=== PATIENT | male | born 1970 | race Hispanic/Latino ===

== ENCOUNTER 2018-06-02 12:18 | Emergency (ER) | payer OTHER ==
--- NOTE | 2018-06-02 13:38 | Emergency Department Report ---
ED N/V/D HPI - General Chief complaint: Nausea/Vomiting/Diarrhea Stated complaint: EXCESSIVE VOMITING Time Seen by Provider: 06/02/18 12:52 Source: patient, family Mode of arrival: Ambulatory Limitations: No Limitations - History of Present Illness Initial comments: This is a 47-year-old male here report that he has trouble swallowing 1 month. Patient was diagnosed at [facility] per patient a month ago with GERD and placed on Protonix. Patient stated the medication is not helping. Patient states he vomited 4 times last night. Patient said he is having abdominal pain from vomiting and retching. He says he cannot keep his mental health drugs none. Patient has a history of bipolar and anxiety. He said they did chest x- ray and labs at [facility] and they found that he has GERD. Denies any fever or chills. Denies any blood in his stool or vomiting blood. Denies any diarrhea. Abdominal pain is 6 out of 10 with vomiting and achy . Exacerbated with vomiting and alleviating after vomit. Denies any urinary burning, frequency or urgency. Denies any chest pain, cough or shortness of breath. Denied is a burning sensation in his chest. Denies any back pain. MD complaint: nausea, vomiting, abdominal pain -: During the night Description of Vomiting: food contents Associated Abdominal Pain: Yes Location: diffuse Radiation: none Severity: moderate Pain Scale: 6 Quality: aching Consistency: intermittent Improves with: other (after vomiting) Worsens with: vomiting Context: other (unknown and thinks is because of his acid reflux) Associated Symptoms: loss of appetite, nausea/vomiting, other (denies any alcohol use.). denies: myalgias, chest pain, cough, diaphoresis, fever/chills, headaches, malaise, rash, dysuria, shortness of breath, syncope, weakness - Related Data Previous Rx's Medication Instructions Recorded Last Taken Type Dicyclomine [Bentyl] 40 mg PO Q8H 3 Days #9 tablet 06/02/18 Unknown Rx Omeprazole 40 mg PO QAM 30 Days #30 capsule. 06/02/18 Unknown Rx Promethazine [Phenergan TAB] 25 mg PO Q6HR PRN #24 tab 06/02/18 Unknown Rx Allergies Allergy/AdvReac Type Severity Reaction Status Date / Time iodine Allergy Swelling Verified 06/02/18 13:44 peanut Allergy Swelling Verified 06/02/18 13:44 ED Review of Systems ROS: Stated complaint: EXCESSIVE VOMITING Other details as noted in HPI Constitutional: denies: chills, fever Eyes: denies: eye pain, eye discharge, vision change ENT: denies: ear pain, throat pain, congestion Respiratory: denies: cough, shortness of breath, SOB with exertion, SOB at rest , stridor, wheezing Cardiovascular: denies: chest pain, palpitations, dyspnea on exertion, edema, syncope Gastrointestinal: abdominal pain, nausea, vomiting. denies: diarrhea, constipation, hematemesis, melena, hematochezia Genitourinary: denies: urgency, dysuria Musculoskeletal: denies: back pain, joint swelling, arthralgia, myalgia Skin: denies: rash, lesions Neurological: denies: headache, weakness, numbness, paresthesias, confusion, abnormal gait, vertigo ED Past Medical Hx - Past Medical History Previous Medical History?: Yes Additional medical history: Bi polar/anxiety - Surgical History Past Surgical History?: No - Family History Family history: no significant - Social History Smoking Status: Never Smoker Substance Use Type: None - Medications Home Medications: Home Medications Medication Instructions Recorded Confirmed Last Taken Type Dicyclomine [Bentyl] 40 mg PO Q8H 3 Days #9 tablet 06/02/18 Unknown Rx Omeprazole 40 mg PO QAM 30 Days #30 capsule.dr 06/02/18 Unknown Rx Promethazine [Phenergan TAB] 25 mg PO Q6HR PRN #24 tab 06/02/18 Unknown Rx ED Physical Exam - General Limitations: No Limitations General appearance: alert, in no apparent distress - Head Head exam: Present: atraumatic, normocephalic, normal inspection - Eye Eye exam: Present: normal appearance, PERRL, EOMI Pupils: Present: normal accommodation - ENT ENT exam: Present: normal orophraynx, mucous membranes dry, TM's normal bilaterally, normal external ear exam - Neck Neck exam: Present: normal inspection, full ROM, other (no C-spine tenderness). Absent: tenderness, meningismus, lymphadenopathy - Respiratory Respiratory exam: Present: normal lung sounds bilaterally. Absent: respiratory distress, chest wall tenderness - Cardiovascular Cardiovascular Exam: Present: regular rate, normal rhythm, normal heart sounds. Absent: systolic murmur, diastolic murmur - GI/Abdominal GI/Abdominal exam: Present: soft, normal bowel sounds. Absent: distended, tenderness, guarding, rebound, rigid, organomegaly, mass, bruit, pulsatile mass , hernia - Extremities Exam Extremities exam: Present: normal inspection, full ROM, normal capillary refill , other (no clubbing, cyanosis or edema. +2 pulses to all extremities and no neurovascular compromise). Absent: tenderness, pedal edema, joint swelling, calf tenderness - Back Exam Back exam: Present: normal inspection, full ROM, other (ambulates without any difficulties). Absent: tenderness, CVA tenderness (R), CVA tenderness (L), muscle spasm, paraspinal tenderness, vertebral tenderness, rash noted - Neurological Exam Neurological exam: Present: alert, oriented X3, normal gait, reflexes normal. Absent: motor sensory deficit - Psychiatric Psychiatric exam: Present: normal affect, normal mood - Skin Skin exam: Present: warm, dry, intact, normal color. Absent: rash ED Course Vital Signs 06/02/18 06/02/18 12:27 19:36 Temperature 98.0 F Pulse Rate 77 Respiratory 16 20 Rate Blood Pressure 149/93 O2 Sat by Pulse 98 Oximetry - Reevaluation(s) Reevaluation #1: 06/02/18 13:52 Patient received Zofran 8 mg IV for nausea, Bentyl 40 mg elixir by mouth, lidocaine 15 mL and Maalox 15 mL by mouth for abdominal discomfort. Blood glucose is 79 and patient started on normal saline and will give D5 half-normal saline after first liters normal saline.. I will reevaluate. Patient awaiting labs and x-ray of the abdomen. 06/02/18 15:26 Reevaluation #2: 06/02/18 15:27 Patient is stable and abdominal exam is normal. He said his pain is better since up until, Maalox and lidocaine. Still awaiting urinalysis. Nausea is better with Zofran. Reevaluation #3: 06/02/18 18:56 Patient with some dry heaving and therefore Protonix 40 mg IV given and Reglan 10 mg IV. I will reevaluate. He drives heaves and brings up sputum no vomitus noted. Abdominal exam is normal Reevaluation #4: 06/02/18 20:50 Patient is able to tolerate liquids. No further vomiting after Protonix and Reglan. He received 2 L of IV fluid. Abdominal exam nontender to palpate in all quadrants ED Medical Decision Making - Lab Data Result diagrams: 06/02/18 14:42 06/02/18 14:42 Lab Results 06/02/18 06/02/18 06/02/18 Range/Units 13:47 14:42 14:42 WBC 7.6 (4.5-11.0) K/mm3 RBC 5.35 H (3.65-5.03) M/mm3 Hgb 15.3 H (11.8-15.2) gm/dl Hct 46.7 H (35.5-45.6) % MCV 87 (84-94) fl MCH 29 (28-32) pg MCHC 33 (32-34) % RDW 14.2 (13.2-15.2) % Plt Count 264 (140-440) K/mm3 Lymph % (Auto) 16.9 (13.4-35.0) % [place] % (Auto) 8.0 H (0.0-7.3) % Eos % (Auto) 7.1 H (0.0-4.3) % Baso % (Auto) 0.7 (0.0-1.8) % Lymph # 1.3 (1.2-5.4) K/mm3 [place] # 0.6 (0.0-0.8) K/mm3 Eos # 0.5 H (0.0-0.4) K/mm3 Baso # 0.1 (0.0-0.1) K/mm3 Seg Neutrophils % 67.3 (40.0-70.0) % Seg Neutrophils # 5.1 (1.8-7.7) K/mm3 Sodium 142 (137-145) mmol/L Potassium 4.0 (3.6-5.0) mmol/L Chloride 102.2 (98-107) mmol/L Carbon Dioxide 26 (22-30) mmol/L Anion Gap 18 mmol/L BUN 15 (9-20) mg/dL Creatinine 0.8 (0.8-1.5) mg/dL Estimated GFR > 60 ml/min BUN/Creatinine Ratio 19 % Glucose 94 (75-100) mg/dL POC Glucose 79 (70-105) Calcium 11.0 H (8.4-10.2) mg/dL Total Bilirubin 0.70 (0.1-1.2) mg/dL AST 36 (5-40) units/L ALT 34 (7-56) units/L Alkaline Phosphatase 108 (35-129) units/L Total Protein 8.2 (6.3-8.2) g/dL Albumin 4.6 (3.9-5) g/dL Albumin/Globulin Ratio 1.3 % Lipase 33 (13-60) units/L Urine Color (Yellow) Urine Turbidity (Clear) Urine pH (5.0-7.0) Ur Specific [place] (1.003-1.030) Urine Protein (Negative) mg/dL Urine Glucose (UA) (Negative) mg/dL Urine Ketones (Negative) mg/dL Urine Blood (Negative) Urine Nitrite (Negative) Urine Bilirubin (Negative) Urine Urobilinogen (<2.0) mg/dL Ur Leukocyte Esterase (Negative) Urine WBC (Auto) (0.0-6.0) /HPF Urine RBC (Auto) (0.0-6.0) /HPF Urine Mucus /HPF Plasma/Serum Alcohol (0-0.07) % 06/02/18 06/02/18 Range/Units 14:42 Unknown WBC (4.5-11.0) K/mm3 RBC (3.65-5.03) M/mm3 Hgb (11.8-15.2) gm/dl Hct (35.5-45.6) % MCV (84-94) fl MCH (28-32) pg MCHC (32-34) % RDW (13.2-15.2) % Plt Count (140-440) K/mm3 Lymph % (Auto) (13.4-35.0) % [place] % (Auto) (0.0-7.3) % Eos % (Auto) (0.0-4.3) % Baso % (Auto) (0.0-1.8) % Lymph # (1.2-5.4) K/mm3 [place] # (0.0-0.8) K/mm3 Eos # (0.0-0.4) K/mm3 Baso # (0.0-0.1) K/mm3 Seg Neutrophils % (40.0-70.0) % Seg Neutrophils # (1.8-7.7) K/mm3 Sodium (137-145) mmol/L Potassium (3.6-5.0) mmol/L Chloride (98-107) mmol/L Carbon Dioxide (22-30) mmol/L Anion Gap mmol/L BUN (9-20) mg/dL Creatinine (0.8-1.5) mg/dL Estimated GFR ml/min BUN/Creatinine Ratio % Glucose (75-100) mg/dL POC Glucose (70-105) Calcium (8.4-10.2) mg/dL Total Bilirubin (0.1-1.2) mg/dL AST (5-40) units/L ALT (7-56) units/L Alkaline Phosphatase (35-129) units/L Total Protein (6.3-8.2) g/dL Albumin (3.9-5) g/dL Albumin/Globulin Ratio % Lipase (13-60) units/L Urine Color [place] (Yellow) Urine Turbidity Clear (Clear) Urine pH 5.0 (5.0-7.0) Ur Specific [place] 1.026 (1.003-1.030) Urine Protein 100 mg/dl (Negative) mg/dL Urine Glucose (UA) Neg (Negative) mg/dL Urine Ketones 20 (Negative) mg/dL Urine Blood Neg (Negative) Urine Nitrite Neg (Negative) Urine Bilirubin Neg (Negative) Urine Urobilinogen 4.0 (<2.0) mg/dL Ur Leukocyte Esterase Neg (Negative) Urine WBC (Auto) 2.0 (0.0-6.0) /HPF Urine RBC (Auto) 6.0 (0.0-6.0) /HPF Urine Mucus 3+ /HPF Plasma/Serum Alcohol < 0.01 (0-0.07) % - Radiology Data Radiology results: report reviewed Abdominal 2 view x-ray dictated by radiologist and report reviewed by myself. Unremarkable abdomen. See full report below Patient: TIESHA GONCALVES MR#: [id number] : 1970 Acct:[id number] Age/Sex: 47 / M ADM Date: 06/02/18 Loc: ED Attending Dr: Ordering Physician: FREDDIE MUIR Date of Service: 06/02/18 Procedure(s): XR abdomen 2V Accession Number(s): [id number] cc: FREDDIE MUIR Fluoro Time In Minutes: ABDOMEN, 2 views: History: Abdominal pain with nausea and vomiting. There is no evidence of free air beneath the diaphragms. The gas pattern within the abdomen is unremarkable. There is no evidence of bowel dilatation, significant air-fluid levels, or pathologic calcifications. Organ shadows are unremarkable. IMPRESSION: Unremarkable abdomen. Transcribed By: TTR Dictated By: CRISTINA MARTINEZ JR, MD Electronically Authenticated By: CRISTINA MARTINEZ JR, MD Signed Date/Time: 06/02/181410 DD/ 09 TD/TT: 06/02/181410 - Medical Decision Making This is a 47-year-old male here reporting that he is having nausea and vomiting with abdominal pain that started last night. He's had similar incident in the past specifically one month ago where he went to [facility] and they did lab work and x-rays and showed he had GERD. He said they placed him on Protonix which is not helping. Patient is here to be evaluated. Patient was examined by myself and abdominal exam, back exam is normal. He is in no distress. Patient noted to be right maradiaga a couple times in the emergency room. He has a blood sugar was at 79 initially he was given 1 L of normal saline followed by D5 half normal saline. Patient tolerating oral liquids in the emergency room. Patient was given Zofran 8 mg IV, Bentyl 40 mg by mouth, lidocaine 15 mL and Maalox 15 mL by mouth which relieved his abdominal. Patient later was given Reglan 10 mg IV and Protonix 40 mg IV and now he is feeling better without any nausea or vomiting episode. CBC and CMP is stable with blood glucose on chemistry at 94. Urinalysis stable except he has protein and ketones in his urine. Lipase is normal value. Suspect rehydration well fix this. Patient had abdominal x-ray two-view that was dictated by radiologist report reviewed by myself and found to have normal exam without any signs of obstruction or constipation. Patient educated on x-ray, lab results and he voiced understanding. Assessment and plan Nausea and vomiting-had her with IV fluid, Reglan, Zofran and Protonix and will send home on omeprazole. Diet diet Abdominal pain-resolved with Benadryl, Maalox and lidocaine Mild dehydration-better with IV fluid and he's taken by mouth liquids. Patient educated on medication, diagnoses, x-ray, lab results and Giovana diet and he voiced understanding. Patient discharged home a prescription for Phenergan, on the omeprazole, Bentyl . Patient referred to advisory intern and primary care. I discussed the patient that he needs to follow-up at [facility] and advisory intern in 3 days and if symptoms return before CN primary care advisory intern he needs to return to the emergency room JO. I also checked it him to eat diet such as bananas, rice, applesauce and toast and to refrain from drinking caffeine or carbonated beverage and he agrees. Discharge home from ED in stable condition, vital signs are stable is a febrile and nausea and abdominal pain has resolved. - Differential Diagnosis SBO, pancreatitis, liver disease, UTI, enteritis, acute nausea and vomiting Critical care attestation.: If time is entered above; I have spent that time in minutes in the direct care of this critically ill patient, excluding procedure time. ED Disposition Clinical Impression: Dehydration Nausea & vomiting Qualifiers: Vomiting type: unspecified Vomiting Intractability: non-intractable Qualified Code(s): R11.2 - Nausea with vomiting, unspecified Abdominal pain Qualifiers: Abdominal location: periumbilical Qualified Code(s): R10.33 - Periumbilical pain Disposition: - TO HOME OR SELFCARE Is pt being admited?: No Does the pt Need Aspirin: No Condition: Stable Instructions: Acute Nausea and Vomiting (ED), Abdominal Pain (ED), Dehydration (ED) Additional Instructions: Please follow up with [facility] for primary care in 3 days Follow-up at [place] [facility] for evaluation of nausea and vomiting that 's been ongoing for over a month. Call to schedule an appointment and follow- up in 3-4 days Current emergency room, if his symptoms return Increase her fluid intake to 2-3 L of water and natural juices daily and avoid carbonated beverages and caffeine. Avoid spicy food Please utilize diet that his plan to include banana, rice, applesauce and toast Take phenergan for nausea and please do not drive or operate heavy machinery while taking this medication as it causes drowsiness Take Omeprazole to help with nausea and stopped taking Protonix Take Bentyl to help to suggest stomach Prescriptions: Dicyclomine [Bentyl] 40 mg PO Q8H 3 Days #9 tablet Omeprazole 40 mg PO QAM 30 Days #30 capsule. Promethazine [Phenergan TAB] 25 mg PO Q6HR PRN #24 tab PRN Reason: Nausea Referrals: PRIMARY CARE, [Primary Care Provider] - 06/05/18 [facility] [Provider Group] - 06/05/18 [facility] [Outside] - 06/05/18 Forms: Work/School Release Form(ED)
[2018-06-02] MEDS ORDERED: LIDOCAINE VISCOUS 2% PO ONE (13:39)
[2018-06-02] MEDS ORDERED: BENTYL PO ONE (13:39)
[2018-06-02] MEDS ORDERED: ZOFRAN IV ONE (13:39)
[2018-06-02] MEDS ORDERED: ALUM-MAG HYDROX-SIMETH 200-200-20MG/5ML PO ONE (13:39)
[2018-06-02] MEDS ORDERED: D5/0.45NS 1,000 ML IV SCH (14:00)
--- NOTE | 2018-06-02 14:34 | XRay Report ---
ABDOMEN, 2 views: History: Abdominal pain with nausea and vomiting. There is no evidence of free air beneath the diaphragms. The gas pattern within the abdomen is unremarkable. There is no evidence of bowel dilatation, significant air-fluid levels, or pathologic calcifications. Organ shadows are unremarkable. IMPRESSION: Unremarkable abdomen.
[2018-06-02 14:58] LABS: Basophils # (Auto) 0.1 K/mm3 (0.0-0.1); Basophils % (Auto) 0.7 % (0.0-1.8); Eosinophils # (Auto) 0.5 K/mm3 (0.0-0.4); Eosinophils % (Auto) 7.1 % (0.0-4.3); Hematocrit 46.7 % (35.5-45.6); Hemoglobin 15.3 gm/dl (11.8-15.2); Lymphocytes # (Auto) 1.3 K/mm3 (1.2-5.4); Lymphocytes % (Auto) 16.9 % (13.4-35.0); Mean Corpuscular HGB Conc 33 % (32-34); Mean Corpuscular Hemoglobin 29 pg (28-32); Mean Corpuscular Volume 87 fl (84-94); Monocytes # (Auto) 0.6 K/mm3 (0.0-0.8); Platelet Count 264 K/mm3 (140-440); Red Blood Count 5.35 M/mm3 (3.65-5.03); Red Cell Distribution Width 14.2 % (13.2-15.2)
[2018-06-02 15:13] LABS: Alanine Aminotransferase 34 units/L (7-56); Albumin 4.6 g/dL (3.9-5); BUN/Creatinine Ratio 19; Blood Urea Nitrogen 15 mg/dL (9-20); Hemolysis Index 9; Lipase 33 units/L (13-60)
[2018-06-02] MEDS ORDERED: NACL 0.9% 1000 ML 1,000 ML ONE (15:28)
[2018-06-02] MEDS ORDERED: NACL 0.9% 1000 ML 1,000 ML IV ONE (15:45)
[2018-06-02 17:28] LABS: Bilirubin,Urine NEG (Negative); Blood,Urine NEG (Negative); Color,Urine Amber (Yellow); Mucus,Urine 3+ /HPF
[2018-06-02] MEDS ORDERED: PROTONIX IV ONE (18:56)
[2018-06-02] MEDS ORDERED: REGLAN IV ONE (18:56)
[2018-06-02 21:20] VITALS: BP 134/80
== END 2018-06-02 21:23 | disposition home or self-care (01) ==
LOC: ED 12:18
DX: E86.0 Dehydration (principal); R11.2 Nausea with vomiting, unspecified; R10.33 Periumbilical pain; Z88.8 Allergy status to other drugs, medicaments and biological substances; Z91.010 Allergy to peanuts
CPT/HCPCS: 36415; 74019; 80053; 81001; 82962; 83690; 85025; 87086; 96361; 96374; 96375; 99284; C9113; G0480; J2405; J2765; J7030; 80320

== ENCOUNTER 2018-06-05 04:08 | Inpatient (IN) | payer OTHER ==
[2018-06-05] MEDS ORDERED: NACL 0.9% 1000 ML 1,000 ML IV ONE ×2 (04:23→13:38)
[2018-06-05] MEDS ORDERED: ZOFRAN ONE ×2 (04:24→11:45)
[2018-06-05] MEDS ORDERED: ZOFRAN IV ONE ×2 (04:46→11:48)
[2018-06-05 04:56] LABS: Basophils # (Auto) 0.1 K/mm3 (0.0-0.1); Basophils % (Auto) 0.8 % (0.0-1.8); Eosinophils # (Auto) 0.5 K/mm3 (0.0-0.4); Eosinophils % (Auto) 4.2 % (0.0-4.3); Hematocrit 48.6 % (35.5-45.6); Hemoglobin 16.8 gm/dl (11.8-15.2); Lymphocytes # (Auto) 2.6 K/mm3 (1.2-5.4); Mean Corpuscular HGB Conc 35 % (32-34); Mean Corpuscular Hemoglobin 29 pg (28-32); Mean Corpuscular Volume 84 fl (84-94); Monocytes % (Auto) 8.1 % (0.0-7.3); Platelet Count 332 K/mm3 (140-440); Red Blood Count 5.79 M/mm3 (3.65-5.03); Red Cell Distribution Width 13.8 % (13.2-15.2)
[2018-06-05 05:16] LABS: Alanine Aminotransferase 37 units/L (7-56); Albumin 5.2 g/dL (3.9-5); BUN/Creatinine Ratio 20; Blood Urea Nitrogen 16 mg/dL (9-20); Calcium 11.7 mg/dL (8.4-10.2); Hemolysis Index 38; Lipase 83 units/L (13-60)
[2018-06-05] MEDS ORDERED: REGLAN IV ONE (08:29)
[2018-06-05] MEDS ORDERED: BENADRYL IV ONE (08:30)
--- NOTE | 2018-06-05 09:29 | Emergency Department Report ---
Chief Complaint: Nausea/Vomiting/Diarrhea Stated Complaint: EMESIS Time Seen by Provider: 06/05/18 09:22 - HPI History of Present Illness: 47-year-old male presents to the emergency department with a complaint of nausea and vomiting has been going on for the past week. At this point he has some upper abdominal pain as well and some back pain secondary to the excessive nausea and vomiting. The patient was here for similar symptoms 3 days ago and had normal labs and a normal abdominal x-ray was discharged home with antiemetics. He says that he was able to keep down the Phenergan but not the rest of the medication and still has been vomiting. He denies any past medical history but does have a past psychiatric history. No recent travel. - ROS Review of Systems: Positive for nausea, vomiting, abdominal pain, back pain Negative for fever, diarrhea, constipation - Exam Vital Signs: Vital Signs 06/05/18 06/05/18 04:07 04:16 Temperature 98.4 F 98.4 F Pulse Rate 96 H 90 Respiratory 18 18 Rate Blood Pressure 145/101 145/101 O2 Sat by Pulse 93 97 Oximetry Physical Exam: Heart and lung sounds are normal auscultation. Normal bowel sounds. There is some upper abdominal tenderness to palpation. Soft abdomen. MSE screening note: Focused history and physical exam performed. Due to findings the following was ordered: Patient already has labs that show a slightly elevated lipase. No urinalysis yet. He will receive IV fluid, antiemetics and we will get a CT scan of the abdomen and pelvis without contrast. ED Medical Decision Making - Lab Data Result diagrams: 06/05/18 04:42 06/05/18 04:42 ED Disposition for MSE Condition: Stable Referrals: PRIMARY CARE [Primary Care Provider] - 3-5 Days
--- NOTE | 2018-06-05 09:58 | Cat Scan Report ---
CT ABDOMEN PELVIS WITHOUT CONTRAST: HISTORY: abdominal pain. COMPARISON: Abdominal films, 2 views on 06/02/18. TECHNIQUE: Helical CT in 1.25mm intervals without IV contrast. Sagittal and coronal reconstructions. FINDINGS: Lung bases: No evidence for pulmonary nodule, infiltrate or effusion. Normal heart size. Liver: Normal. Biliary system: There is suggestion of numerous gallstones within the gallbladder. No biliary dilatation or inflammation. The common bile duct is normal caliber. Pancreas: Normal. Spleen: Normal. Kidneys/ureters/bladder: Normal. Adrenal glands: Normal. Aorta: Normal. Intestines: There is marked thickening and irregularity of the gastric cardia and to a lesser extent the fundus. Gastric mass is suspected until proven otherwise. The distal stomach, small bowel loops and colon are unremarkable. Appendix: Normal. Pelvic viscera: Normal. Ascites: None. Adenopathy: There are a few borderline enlarged and suspicious lymph nodes in the celiac axis. Musculoskeletal: No suspicious bony lesion or fracture is identified. Mild degenerative changes in the lumbar spine. IMPRESSION: Abnormal proximal stomach. A gastric mass is suspected until proven otherwise. Less likely an inflammatory process could be considered. Consider further evaluation with CT with IV and oral contrast or direct visualization with endoscopy.
--- NOTE | 2018-06-05 10:17 | Emergency Department Report ---
ED Abdominal Pain HPI - General Chief Complaint: Nausea/Vomiting/Diarrhea Stated Complaint: EMESIS Time Seen by Provider: 06/05/18 09:22 Source: patient Mode of arrival: Ambulatory Limitations: No Limitations - History of Present Illness Initial Comments: This is a 47-year-old male nontoxic, well nourished in appearance, no acute signs of distress presents to the ED with c/o of nausea, vomiting, and abdominal pain x1 week. Patient stated he was discharged Phenergan which has helped him but then nausea vomiting returned. Patient describes vomiting as food content and yellow gastric acid. Patient describes abdominal pain as cramping and aching with level of 3/10 diffuse. Patient denies chest pain, short of breath, fever, chills, headache, stiff neck, numbness or tingling. Patient denies any diarrhea or constipation. Patient denies any vaginal bleeding or discharge. Patient denies any recent travels. Patient stated allergies to iodine. MD Complaint: abdominal pain -: week(s) (1) Location: diffuse Radiation: none Migration to: no migration Severity: mild Severity scale (0 -10): 3 Quality: cramping Consistency: constant Improves With: nothing Worsens With: nothing Associated Symptoms: nausea, vomiting. denies: diarrhea, fever, chills, constipation, dysuria, hematemesis, hematochezia, melena, hematuria, anorexia, syncope - Related Data Home Medications Medication Instructions Recorded Confirmed Last Taken Divalproex [Cristian REDMOND] 1,500 mg PO QHS 06/05/18 06/05/18 1 Week Ago ~05/29/18 Quetiapine Fumarate [Seroquel] 400 mg PO DAILY 06/05/18 06/05/18 1 Week Ago ~05/29/18 Sertraline [Zoloft] 100 mg PO QDAY 06/05/18 06/05/18 1 Week Ago ~05/29/18 Zolpidem [Ambien] 10 mg PO QHS 06/05/18 06/05/18 1 Week Ago ~05/29/18 Previous Rx's Medication Instructions Recorded Last Taken Type Dicyclomine [Bentyl] 40 mg PO Q8H 3 Days #9 tablet 06/02/18 Unknown Rx Omeprazole 40 mg PO QAM 30 Days #30 capsule. 06/02/18 Unknown Rx Promethazine [Phenergan TAB] 25 mg PO Q6HR PRN #24 tab 06/02/18 Unknown Rx Allergies Allergy/AdvReac Type Severity Reaction Status Date / Time iodine Allergy Swelling Verified 06/02/18 13:44 peanut Allergy Swelling Verified 06/02/18 13:44 ED Review of Systems ROS: Stated complaint: EMESIS Other details as noted in HPI Constitutional: denies: chills, fever Eyes: denies: eye pain, eye discharge, vision change ENT: denies: ear pain, throat pain Respiratory: denies: cough, shortness of breath, wheezing Cardiovascular: denies: chest pain, palpitations Endocrine: no symptoms reported Gastrointestinal: abdominal pain, nausea, vomiting. denies: diarrhea, constipation, hematemesis, melena Genitourinary: denies: urgency, dysuria Musculoskeletal: denies: back pain, joint swelling, arthralgia Skin: denies: rash, lesions Neurological: denies: headache, weakness, paresthesias Psychiatric: denies: anxiety, depression Hematological/Lymphatic: denies: easy bleeding, easy bruising ED Past Medical Hx - Past Medical History Hx Psychiatric Treatment: Yes (Bipolar Anxiety) Additional medical history: Bi polar/anxiety - Surgical History Past Surgical History?: No - Social History Smoking Status: Never Smoker Substance Use Type: None - Medications Home Medications: Home Medications Medication Instructions Recorded Confirmed Last Taken Type Dicyclomine [Bentyl] 40 mg PO Q8H 3 Days #9 tablet 06/02/18 06/05/18 Unknown Rx Omeprazole 40 mg PO QAM 30 Days #30 capsule. 06/02/18 06/05/18 Unknown Rx Promethazine [Phenergan TAB] 25 mg PO Q6HR PRN #24 tab 06/02/18 06/05/18 Unknown Rx Divalproex [Cristian REDMOND] 1,500 mg PO QHS 06/05/18 06/05/18 1 Week Ago History ~05/29/18 Quetiapine Fumarate [Seroquel] 400 mg PO DAILY 06/05/18 06/05/18 1 Week Ago History ~05/29/18 Sertraline [Zoloft] 100 mg PO QDAY 06/05/18 06/05/18 1 Week Ago History ~05/29/18 Zolpidem [Ambien] 10 mg PO QHS 06/05/18 06/05/18 1 Week Ago History ~05/29/18 ED Physical Exam - General Limitations: No Limitations General appearance: alert, in no apparent distress - Head Head exam: Present: atraumatic, normocephalic - Eye Eye exam: Present: normal appearance Pupils: Present: normal accommodation - ENT ENT exam: Present: mucous membranes moist - Neck Neck exam: Present: normal inspection - Respiratory Respiratory exam: Present: normal lung sounds bilaterally. Absent: respiratory distress - Cardiovascular Cardiovascular Exam: Present: regular rate, normal rhythm. Absent: systolic murmur, diastolic murmur, rubs, gallop - GI/Abdominal GI/Abdominal exam: Present: soft, tenderness, normal bowel sounds. Absent: distended, guarding, rebound, rigid, diminished bowel sounds - Expanded GI/Abdominal Exam Expanded GI/Abdominal exam: Absent: psoas sign, obturator sign, heel tap sign, Wilkinson's sign, Rovsing's sign, tenderness at Mcburney's Point, ascites - Rectal Rectal exam: Present: deferred - Extremities Exam Extremities exam: Present: normal inspection, full ROM, normal capillary refill. Absent: tenderness - Back Exam Back exam: Present: normal inspection, full ROM. Absent: tenderness, CVA tenderness (R), CVA tenderness (L), muscle spasm, paraspinal tenderness, vertebral tenderness, rash noted - Neurological Exam Neurological exam: Present: alert, oriented X3, normal gait - Psychiatric Psychiatric exam: Present: normal affect, normal mood - Skin Skin exam: Present: warm, dry, intact, normal color. Absent: rash ED Course Vital Signs 06/05/18 06/05/18 06/05/18 04:07 04:16 10:23 Temperature 98.4 F 98.4 F Pulse Rate 96 H 90 Respiratory 18 18 18 Rate Blood Pressure 145/101 145/101 Blood Pressure [Left] O2 Sat by Pulse 93 97 Oximetry 06/05/18 14:51 Temperature 98.4 F Pulse Rate 73 Respiratory 16 Rate Blood Pressure Blood Pressure 131/85 [Left] O2 Sat by Pulse 96 Oximetry - Reevaluation(s) Reevaluation #1: 06/05/18 10:29 Patient is speaking in full sentences with no signs of distress noted. Reevaluation #2: 06/05/18 13:41 Patient is still vomiting after all medications. Can not tolerate PO contrast. Will contact Dr. Obrien from [facility] for admission. Patient put on NPO with 1L normal saline at 125ml/hr. - Consultations Consultation #1: 06/05/18 10:29 Patient has been consulted with Dr. Delgado about patient history, physical exam, and labs/Ct results and examined and screened patient and agrees to ED plan of care. Consultation #2: 06/05/18 10:58 Dr. Obrien from [facility] was consulted about patient history, physical exam , and CT findings and stated to redo CT with contrast and give steroids with benadryl prior to study. Also stated that if it is a mass patient can follow- up out patient with him. Consultation #3: 06/05/18 13:54 Dr. Obrien consulted and agrees for admission with hospitalist. 06/05/18 15:06 Dr. Deng accepted patientto his services. Requested for IV D5 W NS at 100ml/hr and NPO. ED Medical Decision Making - Lab Data Result diagrams: 06/05/18 04:42 06/05/18 04:42 - Medical Decision Making This is a 31-year-old female that presents with intractable nausea and vomiting with abdominal mass. Patient is stable and was examined by me and Dr. Delgado. There is abdominal tenderness. Negative signs of symptoms of appendicitis. Labs obtained. UA obtained. CT of abdomen without contrast obtained and dictated by the radiologist. Unable to perform with PO contrast due to nausea and vomiting. Patient has type 1 allergic reaction to iodine. Patient is notified of the report with no questions noted by the patient. Vital signs are stable prior to discharge. . A by mouth challenge has been obtained and patient was not able to keep anything down. Patient was consulted with Dr. Obrien and accepted with Dr. Deng for admission. At time of admission, the patient does not seem toxic or ill in appearance. No acute signs of distress noted. Patient agrees to admission treatment plan of care. No further questions noted by the patient. Critical care attestation.: If time is entered above; I have spent that time in minutes in the direct care of this critically ill patient, excluding procedure time. ED Disposition Clinical Impression: Abdominal mass Qualifiers: Abdominal location: generalized Qualified Code(s): R19.07 - Generalized intra- abdominal and pelvic swelling, mass and lump Intractable nausea and vomiting Qualifiers: Vomiting type: unspecified Qualified Code(s): R11.2 - Nausea with vomiting, unspecified Disposition: DC-09 OP ADMIT IP TO THIS HOSP Is pt being admited?: Yes Condition: Stable Referrals: PRIMARY CARE,MD [Primary Care Provider] - 3-5 Days
[2018-06-05] MEDS ORDERED: DECADRON IV ONE (10:57)
[2018-06-05 13:51] LABS: Bilirubin,Urine NEG (Negative); Blood,Urine NEG (Negative); Color,Urine Yellow (Yellow); Mucus,Urine 1+ /HPF; Protein,Urine <15 mg/dL mg/dL (Negative)
--- NOTE | 2018-06-05 21:11 | Consultation ---
REFERRING PHYSICIAN: Dr. Amrik Delgado. INDICATION: 1. Nausea, vomiting. 2. Abnormal CT scan. HISTORY OF PRESENT ILLNESS: The patient is a 47-year-old white male who has been seen by GI for upper GI symptoms. The patient reports recent one week of nausea, vomiting, upper abdominal pain with inability to keep p.o. down. The patient reports pain when he eats. He reports with that regurgitation of food and gastric contents. He reports a 5-pound weight loss over recent months unintentionally. He reports no lower GI symptoms including diarrhea, constipation or rectal bleeding. The patient subsequently came to Emergency Room where a CT scan raised the possibility of gastric mass, and the patient is admitted for GI consultation. PAST MEDICAL HISTORY: Negative. MEDICATIONS: Full medication reviewed in chart with the patient, at this time none. SOCIAL HISTORY: Denies alcohol, tobacco or drug abuse. FAMILY HISTORY: Negative for colon cancer, IBD, or liver disease. REVIEW OF SYSTEMS: GENERAL: Reports mild weakness. HEENT: No visual complaints or tinnitus. PULMONARY: Reports shortness of breath. No cough. No chest pain. GASTROINTESTINAL: Reports abdominal pain and nausea, vomiting. All points of 13-point review of systems otherwise negative. PHYSICAL EXAMINATION: VITAL SIGNS: Temperature of 98.4, pulse 73, respirations 16, blood pressure 131/85. GENERAL: Fairly thin appearing white male in no acute distress. HEENT: Pupils equal, round and reactive. PULMONARY: Clear to auscultation bilaterally. CARDIOVASCULAR: Regular rhythm. Normal S1, S2. ABDOMEN: Positive bowel sounds, soft. SKIN: No obvious rashes. LABORATORY DATA: Pertinent for white count of 12.2, hemoglobin and hematocrit of 16.8 and 48.6, platelet count of 332. Chem-[address] scan raised the possibility of a gastric mass. ASSESSMENT AND PLAN: A 47-year-old white male presents with 1 week of nausea, vomiting, abdominal pain with reported 45 pound weight loss over recent months, now presents with nausea, vomiting with CT scan raised the possibility of gastric mass. Concern for possible malignancy or other underlying pathology. PLAN: 1. Admit per primary team. 2. Review CT scan. 3. NPO after midnight. 4. Plan EGD in a.m. JOB# [id number] CAB/NTS
[2018-06-05] MEDS: D5NS 1,000 ML IV SCH (23:27)
--- NOTE | 2018-06-06 02:26 | Event Note ---
Date: 06/05/18 See dictated history and physical in the reports Gastric mass-causing inlet or outlet obstruction Dehydration secondary to persistent vomiting Weight loss secondary to poor by mouth intake History of schizophrenia GI consult for possible biopsy of the gastric mass IV fluids Nothing by mouth
[2018-06-06] MEDS ORDERED: SODIUM CHLORIDE FLUSH SYRINGE 10 ML IV PRN (02:32)
[2018-06-06] MEDS ORDERED: TYLENOL PO PRN (02:32)
[2018-06-06] MEDS ORDERED: NACL 0.9% 1000 ML 1,000 ML IV SCH (03:00)
--- NOTE | 2018-06-06 03:07 | History and Physical Report ---
CHIEF COMPLAINT: Persistent vomiting for the last one month, more so for the last 3-4 days. HISTORY OF PRESENT ILLNESS: A 47-year-old male with history of bipolar disorder and anxiety, comes in for persistent vomiting for the last 4-6 weeks. The patient has also lost over 40 pounds of weight in the last 6 months because of poor p.o. intake. The patient unable to eat anything. Whenever he eats something or drink something, patient is vomiting. Also, abdominal pain, which is 3/10 associated with eating. Relieved by not eating. Pain is dull in character. No diarrhea. No eating outside. PAST MEDICAL HISTORY: Significant for bipolar disorder and anxiety. Persistent vomiting for the last 4-6 weeks. Loss of weight for 6 weeks. PAST SURGICAL HISTORY: None. SOCIAL HISTORY: Does not smoke. No alcohol, no recreational drugs. FAMILY HISTORY: Hypertension. CURRENT MEDICATIONS: Seroquel 400 mg once a day for bipolar disorder, Zoloft ____ mg once a day, and omeprazole 40 mg once a day. REVIEW OF SYSTEMS: Significant for loss of appetite, loss of weight and persistent vomiting for 4-6 weeks. Abdominal pain for 3-5 on a scale of 1-10. Otherwise, review of systems is negative. PHYSICAL EXAMINATION: GENERAL: Young male, cooperative during examination. VITAL SIGNS: Blood pressure is 131/85, temperature 98.4, pulse is 73, respirations 16, sats are 96%. HEENT: Unremarkable. Pupils equal and reactive. NECK: Supple, no lymphadenopathy, no thyromegaly. LUNGS: Clear to auscultation and percussion. Good air entry. CARDIOVASCULAR: S1, S2 heard. No gallop, no murmur, no rub. Apical impulse in left fifth intercostal space and midclavicular line. ABDOMEN: Soft and benign. Bowel sounds are normal. EXTREMITIES: Good pedal pulses. No pedal edema. CENTRAL NERVOUS SYSTEM: Alert and oriented x 4, nonfocal exam. LABORATORY DATA: Significant for white count of 12,200, H and H are 16.8 and 48.6. Electrolytes are normal. BUN and creatinine are 16 and 0.8, albumin is 5.2. Lipase is 83, slightly high. Calcium is 11.7. Urine is negative. Abdominal CAT scan shows marked thickening and irregularity of the gastric cardia and to a lesser extent the fundus. Gastric masses suspected until proven otherwise. The distal stomach, small bowel loops, and colon are unremarkable. Consider further evaluation with CT with IV and oral contrast ____ with endoscopy. ASSESSMENT AND PLAN: 1. Gastric mass. The patient needs upper GI endoscopy and biopsy. If necessary, we will get a CT of the abdomen with contrast, IV and oral. I would prefer an upper endoscopy at this point, but will defer to the Gastroenterology. 2. Severe dehydration secondary to persistent vomiting. IV fluids. 3. Weight loss secondary to gastric mass and persistent vomiting. Gastric mass may need to be resected. We will get Surgery on board, can be done in this facility or may have to be transferred depending upon the biopsy results. 4. Bipolar disorder. Continue Seroquel. 5. Deep venous thrombosis prophylaxis, heparin 5000 q.12. JOB# [id number] CANDIDO/KVNG
[2018-06-06] MEDS: ZOFRAN IV PRN ×3 (03:57→22:07)
[2018-06-06] MEDS: PROTONIX IV SCH ×3 (03:57→22:07)
[2018-06-06] MEDS: MORPHINE IV PRN ×2 (08:02→22:07)
[2018-06-06] MEDS ORDERED: DIPRIVAN 10 MG/ML IV ONE ×2 (10:49)
[2018-06-06] MEDS: SODIUM CHLORIDE FLUSH SYRINGE 10 ML IV SCH ×2 (11:01→22:11)
[2018-06-06] MEDS: D5NS 1,000 ML IV SCH (11:02)
--- NOTE | 2018-06-06 12:46 | Post Operative Note ---
Pre-op diagnosis: abnormal ct scan Post-op diagnosis: same Findings: EGD: large irregular mass extending from distal esophagus (40 cm from gum) and extends 6 cm to gastric cardia and more lesser curvature, probable malignancy ( bx's) - otherwise benign EGD Procedure: EGD Anesthesia: MAC Surgeon: RAYMUNDO STREETER Estimated blood loss: none Pathology: none Condition: stable Disposition: floor
--- NOTE | 2018-06-06 14:47 | Progress Note ---
Assessment and Plan Distal esophageal mass - s/p EGd today, biopsy pending - discused with GS today, will need cardiothoracic surgery eval - consulted oncology Dysphagia due to distal esophageal mass - has narrow opening per EGD report - will try GI soft/pureed diet, if unable to take oral diet will need TF N/V with dehydration - cont IV fluid, monitor labs Wt loss due to likely malignancy - nutrition consult Bipolar disorder - cont depakote iv, hold other meds as unable to take po - consult psych for med recommendation DVt PX, SCD Brief hostory: 47yo M with h/o GERD presented to the ED with recent onset of nausea, vomiting, and abdominal pain. Work-up revealed distal esophageal mass that extended into the proximal stomach. Radiological data: CT abdomen/pelvis: IMPRESSION: Abnormal proximal stomach. A gastric mass is suspected until proven otherwise. Less likely an inflammatory process could be considered. Consider further evaluation with CT with IV and oral contrast or direct visualization with endoscopy. Subjective Date of service: 06/06/18 Interval history: Pt seen and examined s/p EGD today discussed with GS today updated patient and family at bedside Objective - Constitutional Vitals: Vital Signs - 12hr 06/06/18 06/06/18 06/06/18 05:33 11:36 11:40 Temperature 98.5 F 98.2 F 98.2 F Pulse Rate 57 L 66 66 Respiratory 20 13 13 Rate Blood Pressure 154/83 142/79 142/79 O2 Sat by Pulse 98 96 96 Oximetry 06/06/18 06/06/18 06/06/18 12:26 12:41 12:56 Temperature 98.6 F Pulse Rate 80 86 78 Respiratory 18 14 16 Rate Blood Pressure 143/96 129/79 127/84 O2 Sat by Pulse 96 95 95 Oximetry 06/06/18 13:11 Temperature Pulse Rate 77 Respiratory 13 Rate Blood Pressure 131/89 O2 Sat by Pulse 95 Oximetry General appearance: Present: no acute distress, well-nourished - EENT Eyes: PERRL, EOM intact ENT: hearing intact, clear oral mucosa Ears: bilateral: normal - Neck Neck: supple, normal ROM, cervical LAD - Respiratory Respiratory effort: normal Respiratory: bilateral: CTA - Cardiovascular Rhythm: regular Heart Sounds: Present: S1 & S2. Absent: gallop, rub Extremities: pulses intact, No edema, normal color, Full ROM - Gastrointestinal General gastrointestinal: Present: soft, non-tender, non-distended, normal bowel sounds - Integumentary Integumentary: clear, warm, dry - Musculoskeletal Musculoskeletal: 1, strength equal bilaterally - Neurologic Neurologic: moves all extremities - Psychiatric Psychiatric: memory intact, appropriate mood/affect, intact judgment & insight - Labs CBC & Chem 7: 06/07/18 05:39 06/07/18 05:39
--- NOTE | 2018-06-06 15:24 | Operative Report ---
PROCEDURE: EGD with cold biopsy. INDICATION: 1. Nausea, vomiting. 2. Abnormal CT scan. MEDICATIONS: Propofol per BOX [employer]E [employer]ER. COMPLICATIONS: None. DESCRIPTION OF PROCEDURE: The patient was brought to procedure suite. The patient had the procedure discussed with him at length. All risks, complications, and benefits discussed after which the patient signed for the procedure to be performed. The patient was placed in left lateral decubitus position. Mouth block was placed in the patient's oral cavity. After adequate sedation medication as above, endoscope placed in the mouth and brought to the level of the second portion of duodenum. Retroflexion view performed. The patient's vital signs remained stable throughout the procedure. FINDINGS: There was noted to be a space occupying mass extending from the distal esophagus. The mass started approximately 40 cm from the anal verge just in the area of the GE junction. The mass extended approximately 6 cm to the gastric cardia and extending more towards the area of the lesser curvature. Mass or space occupying, but did not completely occlude the GE junction lumen and the scope was able to pass through the area of the lesion. Concern for malignancy. Multiple biopsies were taken from both the esophageal and gastric area of the lesion and sent for pathology. The esophagus showed no other pathology. Again, the lesion, though space occupying was a poor above half circumference and did not prevent passage of the scope into the stomach. The stomach showed mild gastritis, but otherwise was benign. The duodenum appeared normal. Retroflexion showed no other pathology other than noted above. The patient tolerated the procedure well. No complications during the procedure. IMPRESSION: 1. Mass extending from the very distal esophagus just above the GE junction to the gastric cardia and more towards the lesser curvature. Multiple biopsies taken and sent to pathology. It should be noted mass or space occupying, but did not prevent passage of the scope into the stomach. 2. Gastritis. 3. Otherwise, benign esophagogastroduodenoscopy. RECOMMENDATIONS: 1. Follow up biopsy results. 2. Surgery and Oncology consult. 3. We will follow. JOB# [id number] CAB/NTS
--- NOTE | 2018-06-06 15:47 | Consultation ---
History of Present Illness Consult date: 06/06/18 Reason for consult: other (esophageal mass) Requesting physician: MDAHAVI HOOD Chief complaint: nausea, vomiting, abdominal pain - History of present illness History of present illness: 47yo M with h/o GERD presented to the ED with recent onset of nausea, vomiting, and abdominal pain. Work-up revealed distal esophageal mass that extended into the proximal stomach. Pt reports that at least for the last month, he has had progressively worsening nausea, vomiting, and abdominal pain. He reports that he has difficulty even swallowing mucus. He has lost at least 40 pounds in the last month. He reports that his abdominal pain is epigastric and radiates to the left side. EGD was done recently which showed a very narrow opening. Biopsies are pending. Past History Past Medical History: GERD, other (mental health issues) Past Surgical History: No surgical history Social history: denies: smoking, alcohol abuse Family history: other (mother with breast cancer) Medications and Allergies Allergies Allergy/AdvReac Type Severity Reaction Status Date / Time iodine Allergy Swelling Verified 06/02/18 13:44 peanut Allergy Swelling Verified 06/02/18 13:44 Home Medications Medication Instructions Recorded Confirmed Last Taken Type Dicyclomine [Bentyl] 40 mg PO Q8H 3 Days #9 tablet 06/02/18 06/05/18 Unknown Rx Omeprazole 40 mg PO QAM 30 Days #30 capsule. 06/02/18 06/05/18 Unknown Rx Promethazine [Phenergan TAB] 25 mg PO Q6HR PRN #24 tab 06/02/18 06/05/18 Unknown Rx Divalproex [Cristian REDMOND] 1,500 mg PO QHS 06/05/18 06/05/18 1 Week Ago History ~05/29/18 Quetiapine Fumarate [Seroquel] 400 mg PO DAILY 06/05/18 06/05/18 1 Week Ago History ~05/29/18 Sertraline [Zoloft] 100 mg PO QDAY 06/05/18 06/05/18 1 Week Ago History ~05/29/18 Zolpidem [Ambien] 10 mg PO QHS 06/05/18 06/05/18 1 Week Ago History ~05/29/18 Active Meds: Active Medications Acetaminophen (Tylenol) 650 mg PO Q4H PRN PRN Reason: Pain MILD(1-3)/Fever >100.5/RAMIREZ Dextrose/Sodium Chloride (D5ns) 1,000 mls @ 100 mls/hr IV DIRECT KARLA Last Admin: 06/06/18 11:02 Dose: 100 mls/hr Sodium Chloride (Nacl 0.9% 1000 Ml) 1,000 mls @ 100 mls/hr IV DIRECT KARLA Last Admin: 06/06/18 11:44 Dose: 100 mls/hr Morphine Sulfate (Morphine) 2 mg IV Q4H PRN PRN Reason: Pain, Moderate (4-6) Last Admin: 06/06/18 08:02 Dose: 2 mg Ondansetron HCl (Zofran) 4 mg IV Q8H PRN PRN Reason: Nausea And Vomiting Last Admin: 06/06/18 11:02 Dose: 4 mg Pantoprazole Sodium (Protonix) 40 mg IV BID [facility] Last Admin: 06/06/18 11:01 Dose: 40 mg Sodium Chloride (Sodium Chloride Flush Syringe 10 Ml) 10 ml IV BID [facility] Last Admin: 06/06/18 11:01 Dose: 10 ml Sodium Chloride (Sodium Chloride Flush Syringe 10 Ml) 10 ml IV PRN PRN PRN Reason: LINE FLUSH Review of Systems - Constitutional weight loss, weakness, chronic pain, no fever, no chills - EENT Ears, nose, mouth and throat: no odynophagia, no pain front of neck, no neck lump - Cardiovascular chest pain (lower chest) - Respiratory shortness of breath, pain on inspiration (at the epigastric area) - Gastrointestinal abdominal pain, nausea, vomiting - Genitourinary no dysuria - Muskuloskeletal no neck stiffness, no neck pain - Integumentary no rash, no color changes - Psychiatric anxiety, other (he reports multiple mental health issues) - Hematologic/Lymphatic no lymphadenopathy Exam Vital Signs Temp Pulse Resp BP Pulse Ox 98.4 F 96 H 18 145/101 93 06/05/18 04:07 06/05/18 04:07 06/05/18 04:07 06/05/18 04:07 06/05/18 04:07 - General physical appearance Positive: well developed, well nourished, no distress, no pain - Eyes Positive: normal occular movement - Neck Positive: trachea midline, other (smooth mobile masses noted on the right side of the neck.) - Respiratory Positive: normal expansion, normal respiratory effort, clear to auscultation - Cardiovascular Rhythm: regular - Extremities Extremities: No edema, normal temperature, normal color - Abdomen Abdomen: Present: soft, tender (mild and epigastric area). Absent: distended, rebound, guarding, rigid, wound, surgical scars - Integumentary no rash, no growths, no abnormal pigmentation - Neurologic Neurologic: alert and oriented to time, place and person, motor strength and sensation are grossly intact - Psychiatric Psychiatric: appropriate mood/affect, intact judgment & insight Results - Labs 06/05/18 04:42 06/05/18 04:42 - Imaging CT scan - abdomen: report reviewed, image reviewed Additional studies: Reviewed EGD images and report Assessment and Plan - Patient Problems (1) Abdominal mass Current Visit: Yes Status: Acute Qualifiers: Abdominal location: generalized Qualified Code(s): R19.07 - Generalized intra-abdominal and pelvic swelling, mass and lump Plan to address problem: Patient stable. He most likely has a symptomatic distal esophageal mass that extends into the proximal stomach. He is symptomatic from the very narrow opening in that area. He is also very malnourished from his 40 pound weight loss over this past month. I recommend that he be referred to a thoracic or oncologic surgeon as he may be a candidate for esophagectomy and partial gastrectomy. We are unable to perform this procedure here. In the meantime, he requires semiurgent nutrition. [place] route would be to place a small bore feeding tube into the stomach and give him at least 2 weeks of nutrition prior to any surgical intervention. I think it would be difficult to place blindly. I would start with fluoroscopic placement. If that is unsuccessful then consider endoscopic placement. Another challenging aspect is his lack of insurance. We will ask the oncologist if there are any options at the [facility]. as I believe they have a program to provide comprehensive cancer care for the uninsured. If not, then a transfer to a higher level of care would be in order for this near obstructing esophageal mass. Another recommendation to temporize him would be asking GI if he would be a candidate for stent placement. Discussed with Dr. Hood. Discussed recommendations in detail with patient/ family and all questions answered. Please call if there are any questions. Time=60min
[2018-06-06] MEDS ORDERED: HALDOL IM PRN (16:07)
[2018-06-06] MEDS: DepaCON 500 MG in NACL 0.9% 100 ML IV SCH ×3 (22:06→22:14)
[2018-06-07] MEDS: DepaCON 500 MG in NACL 0.9% 100 ML IV SCH ×3 (05:15→21:27)
[2018-06-07] MEDS: D5NS 1,000 ML IV SCH ×2 (05:16→10:58)
[2018-06-07 06:19] LABS: Basophils # (Auto) 0.1 K/mm3 (0.0-0.1); Basophils % (Auto) 0.5 % (0.0-1.8); Eosinophils # (Auto) 0.3 K/mm3 (0.0-0.4); Eosinophils % (Auto) 3.3 % (0.0-4.3); Hematocrit 43.3 % (35.5-45.6); Hemoglobin 14.4 gm/dl (11.8-15.2); Lymphocytes % (Auto) 20.5 % (13.4-35.0); Mean Corpuscular HGB Conc 33 % (32-34); Mean Corpuscular Hemoglobin 29 pg (28-32); Mean Corpuscular Volume 86 fl (84-94); Monocytes # (Auto) 0.6 K/mm3 (0.0-0.8); Monocytes % (Auto) 6.3 % (0.0-7.3); Platelet Count 277 K/mm3 (140-440); Red Blood Count 5.03 M/mm3 (3.65-5.03); Red Cell Distribution Width 13.8 % (13.2-15.2)
[2018-06-07 06:48] LABS: Alanine Aminotransferase 27 units/L (7-56); Albumin 4.2 g/dL (3.9-5); BUN/Creatinine Ratio 13; Blood Urea Nitrogen 12 mg/dL (9-20); Calcium 9.9 mg/dL (8.4-10.2); Hemolysis Index 5
[2018-06-07] MEDS: MORPHINE IV PRN ×2 (08:14→16:45)
[2018-06-07] MEDS: SODIUM CHLORIDE FLUSH SYRINGE 10 ML IV SCH ×2 (09:46→21:27)
[2018-06-07] MEDS: PROTONIX IV SCH ×2 (09:47→21:27)
[2018-06-07] MEDS ORDERED: PEPCID IV SCH (10:00)
--- NOTE | 2018-06-07 15:58 | Gastroenterology Progress Note ---
Assessment and Plan GI: pt s/p egd w/ mass distal esophagus/stomach - preliminary path consistent with AdenoCa - surgery input noted, awaiting Oncology input - will need CT surgery and Onc follow up as outpt - consider nutrition support as outlined per surgery including consider peg - otherwise can be d/c from GI standpoint if tolerating puree with follow up services as above - will follow for now Subjective Date of service: 06/07/18 Interval history: - reprots tolerating puree diet, denies other complaints Objective - Constitutional Vitals: Temp Pulse Resp BP Pulse Ox 97.0 F L 70 19 130/76 95 06/07/18 12:48 06/07/18 12:48 06/07/18 12:48 06/07/18 12:48 06/07/18 12:48 General appearance: no acute distress - EENT Eyes: PERRL - Respiratory Respiratory: bilateral: CTA - Cardiovascular Rhythm: regular Heart Sounds: Present: S1 & S2 - Gastrointestinal General gastrointestinal: Present: soft, non-tender, non-distended - Labs CBC & Chem 7: 06/07/18 05:39 06/07/18 05:39 Labs: Laboratory Results - last 24 hr 06/07/18 06/07/18 05:39 05:39 WBC 9.8 RBC 5.03 Hgb 14.4 Hct 43.3 MCV 86 MCH 29 MCHC 33 RDW 13.8 Plt Count 277 Lymph % (Auto) 20.5 [place] % (Auto) 6.3 Eos % (Auto) 3.3 Baso % (Auto) 0.5 Lymph # 2.0 [place] # 0.6 Eos # 0.3 Baso # 0.1 Seg Neutrophils % 69.4 Seg Neutrophils # 6.8 Sodium 142 Potassium 3.5 L D Chloride 102.3 Carbon Dioxide 26 Anion Gap 17 BUN 12 Creatinine 0.9 Estimated GFR > 60 BUN/Creatinine Ratio 13 Glucose 96 Calcium 9.9 D Total Bilirubin 0.80 AST 19 ALT 27 Alkaline Phosphatase 95 Total Protein 7.1 Albumin 4.2 Albumin/Globulin Ratio 1.4
[2018-06-07] MEDS: ZOFRAN IV PRN (16:45)
--- NOTE | 2018-06-07 17:25 | Progress Note ---
Assessment and Plan Distal esophageal mass - s/p EGd by GI, preliminary path consistent with AdenoCa - discused with GS, will need cardiothoracic surgery eval - consulted oncology, wait for recommendation - ordered CT chest and neck Dysphagia due to distal esophageal mass - has narrow opening per EGD report - could not tolerate GI soft diet will place on pureed diet, if unable to take oral diet will need TF N/V with dehydration - cont IV fluid, monitor labs Wt loss due to likely malignancy - nutrition consulted Bipolar disorder - cont depakote iv, hold other meds as unable to take po - consulted psych for med recommendation DVt PX, SCD Brief hostory: 47yo M with h/o GERD presented to the ED with recent onset of nausea, vomiting, and abdominal pain. Work-up revealed distal esophageal mass that extended into the proximal stomach. Radiological data: CT abdomen/pelvis: IMPRESSION: Abnormal proximal stomach. A gastric mass is suspected until proven otherwise. Less likely an inflammatory process could be considered. Consider further evaluation with CT with IV and oral contrast or direct visualization with endoscopy. Physical exam: General appearance: Present: no acute distress, well-nourished - EENT Eyes: PERRL, EOM intact ENT: hearing intact, clear oral mucosa Ears: bilateral: normal - Neck Neck: supple, normal ROM, cervical LAD - Respiratory Respiratory effort: normal Respiratory: bilateral: CTA - Cardiovascular Rhythm: regular Heart Sounds: Present: S1 & S2. Absent: gallop, rub Extremities: pulses intact, No edema, normal color, Full ROM - Gastrointestinal General gastrointestinal: Present: soft, non-tender, non-distended, normal bowel sounds - Integumentary Integumentary: clear, warm, dry - Musculoskeletal Musculoskeletal: 1, strength equal bilaterally - Neurologic Neurologic: moves all extremities - Psychiatric Psychiatric: memory intact, appropriate mood/affect, intact judgment & insight Subjective Date of service: 06/07/18 Interval history: Pt seen and examined s/p EGD showed distal esophageal mass discussed with GS, patient will need CT surgeon eval updated patient and family at bedside wait for oncology consult Unable to tolerate GI soft diet Objective - Constitutional Vitals: Vital Signs - 12hr 06/07/18 06/07/18 06:09 12:48 Temperature 98.5 F 97.0 F L Pulse Rate 55 L 70 Respiratory 20 19 Rate Blood Pressure 126/81 130/76 O2 Sat by Pulse 98 95 Oximetry - Labs CBC & Chem 7: 06/07/18 05:39 06/08/18 04:45 Labs: Abnormal lab results 06/07/18 Range/Units 05:39 Potassium 3.5 L D (3.6-5.0) mmol/L
--- NOTE | 2018-06-07 18:38 | Cat Scan Report ---
FINAL REPORT EXAM: CT CHEST WO CON HISTORY: malignancy TECHNIQUE: Spiral CT scanning of the chest. No IV contrast administered. Multiplanar reformations. PRIORS: None. FINDINGS: Chest: Examination limited due to lack of IV contrast administration. The lungs show mild and mostly reticular opacities scattered in bilateral mid-lower lungs, with slight nodular component in the right middle lobe laterally, which may be atelectatic or postinflammatory versus scarring. No discrete parenchymal mass, focal consolidation or pleural effusions. No apparent pneumothorax. Mediastinal structures are grossly unremarkable. No apparent aneurysm or pseudoaneurysm. No significant lymph node enlargement or axillary adenopathy. Lobular and asymmetric wall thickening noted in the gastric cardia, particularly anteriorly, nonspecific. Multiple gallstones noted without significant pericholecystic fluid collection. Degenerative change in the thoracic spine. IMPRESSION: 1. No acute intrathoracic findings. 2. Ill-defined and lobular wall thickening in the gastric cardia may be postinflammatory versus neoplastic or metastatic. Clinical correlation and followup suggested. 3. Cholelithiasis. Unexpected nonemergent findings. [facility] clinical operations leader to notify client.
--- NOTE | 2018-06-07 20:19 | Consultation ---
History of Present Illness - Reason for Consult Consult date: 06/07/18 head/neck mass. Requesting physician: GEN SAHU - History of Present Illness Thank you for consult ,patient resting, records reviewed, please see orders, will also await path report. Past History Past Medical History: GERD, other (mental health issues) Past Surgical History: No surgical history Social history: denies: smoking, alcohol abuse Family history: other (mother with breast cancer) Medications and Allergies Allergies Allergy/AdvReac Type Severity Reaction Status Date / Time iodine Allergy Swelling Verified 06/02/18 13:44 peanut Allergy Swelling Verified 06/02/18 13:44 Home Medications Medication Instructions Recorded Confirmed Last Taken Type Dicyclomine [Bentyl] 40 mg PO Q8H 3 Days #9 tablet 06/02/18 06/05/18 Unknown Rx Omeprazole 40 mg PO QAM 30 Days #30 capsule. 06/02/18 06/05/18 Unknown Rx Promethazine [Phenergan TAB] 25 mg PO Q6HR PRN #24 tab 06/02/18 06/05/18 Unknown Rx Divalproex [DepGarth REDMOND] 1,500 mg PO QHS 06/05/18 06/05/18 1 Week Ago History ~05/29/18 Quetiapine Fumarate [Seroquel] 400 mg PO DAILY 06/05/18 06/05/18 1 Week Ago History ~05/29/18 Sertraline [Zoloft] 100 mg PO QDAY 06/05/18 06/05/18 1 Week Ago History ~05/29/18 Zolpidem [Ambien] 10 mg PO QHS 06/05/18 06/05/18 1 Week Ago History ~05/29/18 Active Meds: Active Medications Acetaminophen (Tylenol) 650 mg PO Q4H PRN PRN Reason: Pain MILD(1-3)/Fever >100.5/RAMIREZ Haloperidol Lactate (Haldol) 5 mg IM Q6H PRN PRN Reason: Agitation Dextrose/Sodium Chloride (D5ns) 1,000 mls @ 100 mls/hr IV DIRECT KARLA Last Admin: 06/07/18 10:58 Dose: 100 mls/hr Valproate Sodium 500 mg/ (Sodium Chloride) 105 mls @ 100 mls/hr IV Q8HR KAR[facility] Last Admin: 06/07/18 14:11 Dose: 100 mls/hr Morphine Sulfate (Morphine) 2 mg IV Q4H PRN PRN Reason: Pain, Moderate (4-6) Last Admin: 06/07/18 16:45 Dose: 2 mg Ondansetron HCl (Zofran) 4 mg IV Q8H PRN PRN Reason: Nausea And Vomiting Last Admin: 06/07/18 16:45 Dose: 4 mg Pantoprazole Sodium (Protonix) 40 mg IV BID [facility] Last Admin: 06/07/18 09:47 Dose: 40 mg Sodium Chloride (Sodium Chloride Flush Syringe 10 Ml) 10 ml IV BID [facility] Last Admin: 06/07/18 09:46 Dose: 10 ml Sodium Chloride (Sodium Chloride Flush Syringe 10 Ml) 10 ml IV PRN PRN PRN Reason: LINE FLUSH Review of Systems Constitutional: fatigue Exam - Constitutional Vitals: Temp Pulse Resp BP Pulse Ox 97.0 F L 70 19 130/76 95 06/07/18 12:48 06/07/18 12:48 06/07/18 12:48 06/07/18 12:48 06/07/18 12:48 General appearance: Present: mild distress, well-nourished - EENT Eyes: Present: PERRL ENT: hearing intact, clear oral mucosa - Neck Neck: Present: supple, normal ROM - Respiratory Respiratory effort: normal Respiratory: bilateral: CTA - Cardiovascular Heart Sounds: Present: S1 & S2. Absent: rub, click - Extremities Extremities: pulses symmetrical, No edema Peripheral Pulses: within normal limits - Abdominal General gastrointestinal: Present: soft, non-tender, non-distended, normal bowel sounds Male genitourinary: Present: deferred, normal - Rectal Rectal Exam: deferred - Integumentary Integumentary: Present: clear, warm, dry - Musculoskeletal Musculoskeletal: gait normal, strength equal bilaterally - Psychiatric Psychiatric: appropriate mood/affect, intact judgment & insight - Neurologic Neurologic: CNII-XII intact, moves all extremities Results - Labs CBC & Chem 7: 06/07/18 05:39 06/07/18 05:39 Labs: Abnormal lab results 06/07/18 Range/Units 05:39 Potassium 3.5 L D (3.6-5.0) mmol/L Assessment and Plan - Patient Problems (1) Abdominal mass Current Visit: Yes Status: Acute Qualifiers: Abdominal location: generalized Qualified Code(s): R19.07 - Generalized intra-abdominal and pelvic swelling, mass and lump Plan to address problem: may be mets, awiat esophagus bx report. (2) Abdominal pain Current Visit: No Status: Acute Qualifiers: Abdominal location: periumbilical Qualified Code(s): R10.33 - Periumbilical pain Plan to address problem: pain control. (3) Intractable nausea and vomiting Current Visit: Yes Status: Acute Qualifiers: Vomiting type: unspecified Qualified Code(s): R11.2 - Nausea with vomiting , unspecified Plan to address problem: hydration, antiemetic,
[2018-06-07] MEDS: KCL 10MEQ/100ML 10 MEQ/100 ML BAG IV SCH ×2 (21:13→23:24)
[2018-06-08] MEDS: ZOFRAN IV PRN (00:53)
[2018-06-08] MEDS: MORPHINE IV PRN (00:53)
[2018-06-08] MEDS: DepaCON 500 MG in NACL 0.9% 100 ML IV SCH ×2 (05:47→13:49)
[2018-06-08 06:55] LABS: BUN/Creatinine Ratio 10; Blood Urea Nitrogen 7 mg/dL (9-20); Calcium 9.8 mg/dL (8.4-10.2); Hemolysis Index 25
[2018-06-08] MEDS ORDERED: PROTONIX PO SCH (10:00)
[2018-06-08] MEDS: SODIUM CHLORIDE FLUSH SYRINGE 10 ML IV SCH (10:21)
[2018-06-08 12:36] VITALS: BP 141/84
--- NOTE | 2018-06-08 12:57 | Cat Scan Report ---
CT NECK WITHOUT CONTRAST: HISTORY: Neck mass. TECHNIQUE: Helical CT following IV contrast. Sagittal and coronal reformatted images. FINDINGS: The parotid and submandibular glands are normal. The carotid sheaths are intact. There is no evidence of adenopathy within the neck. The thyroid gland is normal. The glottic structures are normal. The airway is patent. Strap musculature is unremarkable. Hyoid bone and thyroid cartilage are intact. IMPRESSION: Unremarkable CT neck. No suspicious neck mass is detected.
--- NOTE | 2018-06-08 15:34 | Consultation ---
History of Present Illness - Reason for Consult Consult date: 06/08/18 Reason for consult: Mental Health Evaluation Requesting physician: MADHAVI ORTEGA - Chief Complaint Chief complaint: "I am okay" - History of Present Psychiatric Illness 47yo M with h/o GERD presented to the ED with recent onset of nausea, vomiting, and abdominal pain. Work-up revealed distal esophageal mass that extended into the proximal stomach. Psychiatry was consulted to see patient for medication management. Today the patient is calm and cooperative during the assessment. He stated having an issue with swallowing for several month. He stated having a hx of Bipolar DO and takes depakote. He stated that he is worry about his medical treatment moving forward, but denies depression. He stated being compliant with taking his medication and also attend all scheduled outpatient psy services appts. He stated one mental health hospitalization and one suicide attempt years ago. He denies SI/HI's and AVH's. He stated that he lost 40 lbs because of lack of eating because of the N/V he's experiencing. He denies recreational drug use alcohol consumption (etoh). The patient stated experiencing rapid cycling (mainic episodes) in the past. Medications and Allergies Allergies Allergy/AdvReac Type Severity Reaction Status Date / Time iodine Allergy Swelling Verified 06/02/18 13:44 peanut Allergy Swelling Verified 06/02/18 13:44 Home Medications Medication Instructions Recorded Confirmed Last Taken Type Dicyclomine [Bentyl] 40 mg PO Q8H 3 Days #9 tablet 06/02/18 06/05/18 Unknown Rx Omeprazole 40 mg PO QAM 30 Days #30 capsule. 06/02/18 06/05/18 Unknown Rx Promethazine [Phenergan TAB] 25 mg PO Q6HR PRN #24 tab 06/02/18 06/05/18 Unknown Rx Divalproex [DepGarth REDMOND] 1,500 mg PO QHS 06/05/18 06/05/18 1 Week Ago History ~05/29/18 Quetiapine Fumarate [Seroquel] 400 mg PO DAILY 06/05/18 06/05/18 1 Week Ago History ~05/29/18 Sertraline [Zoloft] 100 mg PO QDAY 06/05/18 06/05/18 1 Week Ago History ~05/29/18 Zolpidem [Ambien] 10 mg PO QHS 06/05/18 06/05/18 1 Week Ago History ~05/29/18 Divalproex Sprinkle [DepaKOTE 500 mg PO Q12H #60 capsule 06/08/18 Unknown Rx SPRINKLE] HYDROcodone/ACETAMINOPHEN [Lortab 473 ml PO Q6H PRN 14 Days solution 06/08/18 Unknown Rx 10 mg-300 mg per 15 ML ORAL LIQ] Active Meds: Active Medications Acetaminophen (Tylenol) 650 mg PO Q4H PRN PRN Reason: Pain MILD(1-3)/Fever >100.5/RAMIREZ Haloperidol Lactate (Haldol) 5 mg IM Q6H PRN PRN Reason: Agitation Dextrose/Sodium Chloride (D5ns) 1,000 mls @ 100 mls/hr IV DIRECT [facility] Last Admin: 06/07/18 10:58 Dose: 100 mls/hr Valproate Sodium 500 mg/ (Sodium Chloride) 105 mls @ 100 mls/hr IV Q8HR [facility] Last Admin: 06/08/18 13:49 Dose: 100 mls/hr Morphine Sulfate (Morphine) 2 mg IV Q4H PRN PRN Reason: Pain, Moderate (4-6) Last Admin: 06/08/18 00:53 Dose: 2 mg Ondansetron HCl (Zofran) 4 mg IV Q8H PRN PRN Reason: Nausea And Vomiting Last Admin: 06/08/18 00:53 Dose: 4 mg Pantoprazole (Protonix) 40 mg PO BID [facility] Last Admin: 06/08/18 10:22 Dose: 40 mg Sodium Chloride (Sodium Chloride Flush Syringe 10 Ml) 10 ml IV BID [facility] Last Admin: 06/08/18 10:21 Dose: 10 ml Sodium Chloride (Sodium Chloride Flush Syringe 10 Ml) 10 ml IV PRN PRN PRN Reason: LINE FLUSH Mental Status Exam - Vital signs Last Vital Signs Temp 97.6 F 06/08/18 12:10 Pulse 78 06/08/18 12:10 Resp 19 06/08/18 12:10 BP 141/84 06/08/18 12:10 Pulse Ox 98 06/08/18 12:10 - Exam Narrative exam: MSE: Appearance: calm, cooperative Behavior: regular eye contact Speech: regular rate and tone Mood: "okay" Affect: congruent to mood Thought Process: linear Thought Content: denies SI/HI's and AVH's Motor Activity: sitting up in bed Cognition: A/O x 3 Insight: appropriate Judgment: appropriate Results Result Diagrams: 06/07/18 05:39 06/08/18 04:45 Abnormal lab results 06/08/18 Range/Units 04:45 Carbon Dioxide 21 L (22-30) mmol/L BUN 7 L (9-20) mg/dL Creatinine 0.7 L (0.8-1.5) mg/dL All other labs normal. Assessment and Plan Assessment and plan: Impression: Hx of Bipolar DO. Today the patient is calm and cooperative during the assessment. Hx of rapid cycling (manic episodes). The patient is on a pureed diet. Recommendation/Plan: D/C Valproic Acid. Start Depakote Sprinkles 500 mg PO BID for mood. The patient can follow up with his psychiatrist for outpatient psy services.
--- NOTE | 2018-06-08 15:51 | Discharge Summary ---
Providers - Providers Date of Admission: 06/05/18 14:30 Date of discharge: 06/08/18 Attending physician: MADHAVI ORTEGA 06/06/18 02:32 Consult to Physician [CONS] Routine Comment: Consulting Provider: VITO BEVERLY Physician Instructions: Reason For Exam: Gastric mass 06/06/18 14:41 Consult to Physician [CONS] Routine Comment: Consulting Provider: ELMER MEJIA Physician Instructions: Reason For Exam: esophageal mass 06/06/18 14:43 Consult to Physician [CONS] Routine Comment: Consulting Provider: ALLIE STOCKTON Physician Instructions: Reason For Exam: esophageal mass 06/06/18 16:08 Consult to Mental Health [CONS] Routine Reason For Exam: medication recommendation Place consult to:: mental health Notified:: Phone number called:: [phone] Was contact made?: Yes If yes, spoke with:: johny Time called:: 08:17 Primary care physician: [employer] Hospitalization Condition: Stable Hospital course: Brief hostory: 47yo M with h/o GERD presented to the ED with recent onset of nausea, vomiting, and abdominal pain. Work-up revealed distal esophageal mass that extended into the proximal stomach. Discharge diagnosis: Distal esophageal mass - s/p EGd by GI, preliminary path consistent with AdenoCa - discused with GS, will need cardiothoracic surgery eval (service not available in this hospital), Pt prefers to go at [facility] - consulted oncology, need outpt follow up - ordered CT chest and neck Dysphagia due to distal esophageal mass - has narrow opening per EGD report - could not tolerate GI soft diet will place on pureed diet, if unable to take oral diet will need TF N/V with dehydration - cont IV fluid, monitor labs Wt loss due to likely malignancy - nutrition consulted Bipolar disorder - cont depakote iv, hold other meds as unable to take po - consulted psych for med recommendation DVt PX, SCD Radiological data: CT abdomen/pelvis: IMPRESSION: Abnormal proximal stomach. A gastric mass is suspected until proven otherwise. Less likely an inflammatory process could be considered. Consider further evaluation with CT with IV and oral contrast or direct visualization with endoscopy. Physical exam: General appearance: Present: no acute distress, well-nourished - EENT Eyes: PERRL, EOM intact ENT: hearing intact, clear oral mucosa Ears: bilateral: normal - Neck Neck: supple, normal ROM, cervical LAD - Respiratory Respiratory effort: normal Respiratory: bilateral: CTA - Cardiovascular Rhythm: regular Heart Sounds: Present: S1 & S2. Absent: gallop, rub Extremities: pulses intact, No edema, normal color, Full ROM - Gastrointestinal General gastrointestinal: Present: soft, non-tender, non-distended, normal bowel sounds - Integumentary Integumentary: clear, warm, dry - Musculoskeletal Musculoskeletal: 1, strength equal bilaterally - Neurologic Neurologic: moves all extremities - Psychiatric Psychiatric: memory intact, appropriate mood/affect, intact judgment & insight Disposition: DC-01 TO HOME OR SELFCARE Time spent for discharge: 34 minutes Core Measure Documentation - Palliative Care Palliative Care/ Comfort Measures: Not Applicable - Core Measures Any of the following diagnoses?: none Exam - Constitutional Vitals: Temp Pulse Resp BP Pulse Ox 97.6 F 78 19 141/84 98 06/08/18 12:10 06/08/18 12:10 06/08/18 12:10 06/08/18 12:10 06/08/18 12:10 Plan Activity: advance as tolerated Weight Bearing Status: Weight Bear as Tolerated Diet: other (pureed diet) Additional Instructions: f/u with oncology and CT surgery outpt Follow up with: PRIMARY CARE, [Primary Care Provider] - 3-5 Days Prescriptions: HYDROcodone/ACETAMINOPHEN [Lortab 10 mg-300 mg per 15 ML ORAL LIQ] 473 ml PO Q6H PRN 14 Days solution PRN Reason: Pain , Severe (7-10) VALPROIC ACID Liq [DepaKENE Liq] 500 mg PO Q8H 30 Days udc
--- NOTE | 2018-06-08 16:24 | Gastroenterology Progress Note ---
Assessment and Plan GI: probable esophageal cancer - tolerating po - follow up Oncology and CT surgery as outpt - will sign off, call if needed Subjective Date of service: 06/08/18 Interval history: - pt reports overall feeing better, wants to go home Objective - Constitutional Vitals: Temp Pulse Resp BP Pulse Ox 97.6 F 78 19 141/84 98 06/08/18 12:10 06/08/18 12:10 06/08/18 12:10 06/08/18 12:10 06/08/18 12:10 General appearance: no acute distress - EENT Eyes: PERRL - Respiratory Respiratory: bilateral: CTA - Cardiovascular Rhythm: regular Heart Sounds: Present: S1 & S2 - Gastrointestinal General gastrointestinal: Present: soft, non-tender, non-distended - Labs CBC & Chem 7: 06/07/18 05:39 06/08/18 04:45 Labs: Laboratory Results - last 24 hr 06/07/18 06/08/18 21:08 04:45 Sodium 141 Potassium 3.8 Chloride 104.1 Carbon Dioxide 21 L Anion Gap 20 BUN 7 L Creatinine 0.7 L Estimated GFR > 60 BUN/Creatinine Ratio 10 Glucose 83 Calcium 9.8 Lactate Dehydrogenase 135
[2018-06-08 16:59] LABS: Lipase 123 units/L (13-60)
--- NOTE | 2018-06-08 17:03 | Progress Note ---
Assessment and Plan - Patient Problems (1) Abdominal mass Current Visit: Yes Status: Acute Qualifiers: Abdominal location: generalized Qualified Code(s): R19.07 - Generalized intra-abdominal and pelvic swelling, mass and lump Plan to address problem: may be mets, awiat esophagus bx report. (2) Abdominal pain Current Visit: No Status: Acute Qualifiers: Abdominal location: periumbilical Qualified Code(s): R10.33 - Periumbilical pain Plan to address problem: pain control. (3) Intractable nausea and vomiting Current Visit: Yes Status: Acute Qualifiers: Vomiting type: unspecified Qualified Code(s): R11.2 - Nausea with vomiting , unspecified Plan to address problem: hydration, antiemetic, (4) Dysphagia Current Visit: Yes Status: Acute Plan to address problem: to both solid/liquid, consistent with the final dx. Subjective Date of service: 06/08/18 Principal diagnosis: Adenocarcinoma Interval history: Patient seen/examined, family meeting held, i have discussed in detail, dx, options for tx,all questions answered.He will need surgical resection by ENT, followed by RT,=/- chemotherapy,and immunotherapy.He will need HIV testing. Objective - Constitutional Vitals: Vital Signs - 12hr 06/08/18 06/08/18 05:17 12:10 Temperature 98.4 F 97.6 F Pulse Rate 60 78 Respiratory 18 19 Rate Blood Pressure 134/82 141/84 O2 Sat by Pulse 94 98 Oximetry General appearance: Present: mild distress - EENT Eyes: PERRL, EOM intact ENT: hearing intact, clear oral mucosa Ears: bilateral: normal - Neck Neck: supple, normal ROM - Respiratory Respiratory effort: normal Respiratory: bilateral: CTA - Breasts Breasts: deferred - Cardiovascular Rhythm: regular Heart Sounds: Present: S1 & S2. Absent: gallop, rub Extremities: pulses intact, No edema, normal color, Full ROM - Gastrointestinal General gastrointestinal: Present: soft, non-tender, non-distended, normal bowel sounds Rectal Exam: deferred - Genitourinary Male genitourinary: deferred - Integumentary Integumentary: clear, warm, dry - Musculoskeletal Musculoskeletal: 1, strength equal bilaterally - Neurologic Neurologic: moves all extremities - Psychiatric Psychiatric: memory intact, appropriate mood/affect, intact judgment & insight - Labs CBC & Chem 7: 06/07/18 05:39 07/26/18 04:45 Labs: Abnormal lab results 06/08/18 Range/Units 04:45 Carbon Dioxide 21 L (22-30) mmol/L BUN 7 L (9-20) mg/dL Creatinine 0.7 L (0.8-1.5) mg/dL
== END 2018-06-08 17:30 | disposition home or self-care (01) | DRG 376 ==
LOC: ED 04:08 → 3A 14:30
PROVIDERS: ADMIT Internal Medicine; ATTEND Internal Medicine
PROC: 0DB38ZX Excision of Lower Esophagus, Via Natural or Artificial Opening Endoscopic, Diagnostic (ICD-10-PCS; principal; 2018-06-05)
PROC: 0DB68ZX Excision of Stomach, Via Natural or Artificial Opening Endoscopic, Diagnostic (ICD-10-PCS; 2018-06-05)
DX: C15.5 Malignant neoplasm of lower third of esophagus (principal); K21.9 Gastro-esophageal reflux disease without esophagitis; R13.10 Dysphagia, unspecified; E86.0 Dehydration; F20.9 Schizophrenia, unspecified; F41.9 Anxiety disorder, unspecified; F31.9 Bipolar disorder, unspecified; K31.9 Disease of stomach and duodenum, unspecified; Z91.041 Radiographic dye allergy status; Z91.010 Allergy to peanuts; Z79.899 Other long term (current) drug therapy; Z82.49 Family history of ischemic heart disease and other diseases of the circulatory system
CPT/HCPCS: 36415; 70490; 71250; 74176; 80048; 80053; 81001; 82150; 82232; 83615; 83690; 84484; 85025; 88305; 88342; 93005; 93010; 96367; 96374; 96375; 96376; C9113; J1100; J1200; J2270; J2405; J2704; J2765; J3480; J7030; J7042

== ENCOUNTER 2018-08-08 12:59 | Outpatient (CLI) | payer SELFPAY | END 2018-08-08 13:00 | disposition home or self-care (01) | LOC: LABHHL 12:59 | PROVIDERS: ATTEND Internal Medicine Hematology & Oncology | DX: C78.7 Secondary malignant neoplasm of liver and intrahepatic bile duct (principal); E66.9 Obesity, unspecified; F31.60 Bipolar disorder, current episode mixed, unspecified; F41.9 Anxiety disorder, unspecified; R11.14 Bilious vomiting | CPT/HCPCS: 88341; 88342 ==